=== PATIENT | female | born 1985 | race African-American/Black ===

== ENCOUNTER 2018-06-15 01:20 | Emergency (ER) | payer MEDICAID ==
[~2018-06-15] VITALS: Ht 149.9 cm; Wt 73.0 kg
[2018-06-15] MEDS ORDERED: LORAZEPAM 0.5MG TABLET PO ONE (05:15)
[2018-06-15 06:05] VITALS: BP 140/79
== END 2018-06-15 05:30 | disposition home or self-care (01) ==
LOC: ER 01:20
DX: F41.9 Anxiety disorder, unspecified (principal); Z98.890 Other specified postprocedural states
CPT/HCPCS: 81025; 99284